=== PATIENT | female | born 1995 | race African-American/Black ===

== ENCOUNTER 2020-08-10 20:58 | Inpatient (IN) | payer OTHER ==
--- NOTE | 2020-08-10 21:56 | PD.OB.PROG ---
Past Medical History - Primary Care Physician Documenting Provider Type: Laborist - Admission Chief Complaint: contractions History Source: Patient Limitations to Obtaining History: No Limitations - Nursing Documentation Nursing Documentation Reviewed: No - Past Medical History CAFETERIA COOK: Denies/None ... Weeks Gestation by Dates: 40.1 ...EDC by Dates: 08/09/20 Heme/Onc: Denies/None Infectious Disease: Denies/None Psych: Denies/None Musculoskeletal: Denies/None - Past Surgical History Past Surgical History: Yes: AV Fistula/Graft Review of Systems - Review of Systems Constitutional: reports: No Symptoms Eyes: reports: No Symptoms HENT: reports: No Symptoms Neck: reports: No Symptoms Cardiovascular: reports: No Symptoms Respiratory: reports: No Symptoms Gastrointestinal: reports: Abdominal Pain Breasts: reports: No Symptoms Reported Musculoskeletal: reports: No Symptoms Integumentary: reports: No Symptoms Neurological: reports: No Symptoms Endocrine: reports: No Symptoms Hematology/Lymphatic: reports: No Symptoms Psychiatric: reports: No Symptoms Physical Exam - Obstetrical Constitutional: Yes: Well Nourished HENT: Yes: WNL Lungs: Normal air movement - Abdominal Exam/OB Fundal Height: 40 Number of Fetuses: Single Presentation: Vertex - Vaginal Exam/OB Vaginal Exam Deferred: Yes Vaginal Bleeding: No Dilatation (cm): 2 Effacement (%): 70 Amniotic Membrane Status: Intact Station: -2 - Physical Exam Musculoskeletal: Yes: Back Pain Integumentary: Yes: WNL ...Motor Strength: WNL Assessment/Plan 24yo at 40.1 weeks with c/o contractions early labor management plan per Dr. Tavera
[2020-08-10 22:22] VITALS: BMI 34.3
[2020-08-10] MEDS: ELECTROLYTE-148 SOLN 1,000 ML IV SCH (23:00)
[2020-08-11 00:58] LABS: BASO % 0.7 % (0-2.0); EOS % 1.4 % (0-4.5); HEMATOCRIT 33.7 % (32.4-45.2); HEMOGLOBIN 11.1 GM/dL (10.7-15.3); LYMPH % 23.6 % (8-40); MCH 30.7 pg (25.7-33.7); MEAN CELL VOLUME 93.1 fl (80-96); MEAN PLT VOLUME 9.7 fl (7.5-11.1); MONO % 9.4 % (3.8-10.2); NEUT % 64.9 % (42.8-82.8); PLATELET COUNT 183 K/MM3 (134-434); RBC 3.62 M/mm3 (3.60-5.2); WHITE BLOOD COUNT 8.5 K/mm3 (4.0-10.0)
[2020-08-11 01:26] LABS: BLOOD UREA NITROGEN 12.5 mg/dL (7-18); CALCIUM 8.5 mg/dL (8.5-10.1); CREATININE 0.4 mg/dL (0.55-1.3); POTASSIUM 4.2 mmol/L (3.5-5.1)
[2020-08-11 01:33] LABS: PLATELET ESTIMATE ADEQUATE
[2020-08-11] MEDS ORDERED: AMPICILLIN SODIUM 2 GM VIAL ONE (02:41)
[2020-08-11] MEDS ORDERED: AMPICILLIN - 2 GM in SODIUM CHLORIDE 100 ML IVPB ONE ×2 (02:43→03:11)
--- NOTE | 2020-08-11 02:52 | HP ---
Past Medical History - Primary Care Physician PCP:: Margo Cardenas - Admission Chief Complaint: Lower abdominal pain History of Present Illness: 24 yo , BARBARA 08/09/20, EGA 40 weeks 2 days, presented with the above. No bleeding or leaking fluid per vagina/ History Source: Patient Limitations to Obtaining History: No Limitations - Past Medical History ...: 4 ...Para: 1 ...Term: 1 ...: 0 ...Spon : 0 ...Induced : 2 ...Living Children: 1 ...Multiple Gestation: 0 ... Weeks Gestation by Dates: 40.1 ...EDC by Dates: 08/09/20 - Past Surgical History Hx Myomectomy: No Hx Transabdominal Cerclage: No - Smoking History Smoking history: Former smoker Have you smoked in the past 12 months: No - Alcohol/Substance Use Hx Alcohol Use: No History of Substance Use: reports: None - Social History Do you think of yourself as: Straight/Heterosexual History of Recent Travel: No Home Medications - Allergies Allergies/Adverse Reactions: Allergies Allergy/AdvReac Type Severity Reaction Status Date / Time No Known Allergies Allergy Verified 08/10/20 22:24 - Home Medications Home Medications: Ambulatory Orders No122/Iron/Folic Acid [ Multi Tablet] 1 each PO AC 08/10/20 Family Medical History Family History: Denies Review of Systems - Review of Systems Constitutional: reports: No Symptoms Eyes: reports: No Symptoms HENT: reports: No Symptoms Neck: reports: No Symptoms Cardiovascular: reports: No Symptoms Respiratory: reports: No Symptoms Gastrointestinal: reports: No Symptoms Genitourinary: reports: No Symptoms Breasts: reports: No Symptoms Reported Musculoskeletal: reports: No Symptoms Integumentary: reports: No Symptoms Neurological: reports: No Symptoms Endocrine: reports: No Symptoms Hematology/Lymphatic: reports: No Symptoms Psychiatric: reports: No Symptoms Physical Exam - Maternity Vital Signs: Vital Signs Temperature 97.8 F 08/11/20 02:00 Pulse Rate 86 08/11/20 02:00 Respiratory Rate 08/11/20 02:00 Blood Pressure 121/56 L 08/11/20 02:00 O2 Sat by Pulse Oximetry (%) Constitutional: Yes: Well Nourished Eyes: Yes: WNL HENT: Yes: WNL Neck: Yes: WNL Cardiovascular: Yes: WNL - Abdominal Exam/OB Fundal Height: 39 Number of Fetuses: Single Presentation: Vertex Contractions: Yes Regularity: Irregular Intensity: Mild Monitor Mode: External Heart Rate (range): 140 Heart Rate Location: [facility] Category: I Accelerations: Uniform Decelerations: None - Vaginal Exam/OB Vaginal Bleeding: No Speculum Exam: No Dilatation (cm): 2 Effacement (%): 80 Amniotic Membrane Status: Intact Presentation: Vertex/Position Station: -3 - Physical Exam Musculoskeletal: Yes: WNL Extremities: Yes: WNL Edema: No Integumentary: Yes: WNL ...Motor Strength: WNL Psychiatric: Yes: WNL - Labs Lab Results: CBC, BMP 08/10/20 22:30 08/10/20 22:30 Hemorrhage Risk Assessment - Risk Factors Medium Risk Factors: Yes: None High Risk Factors: Yes: None Risk Score: 1 Risk Level: Medium Risk Problem List - Problems (1) 40 weeks gestation of Code(s): Z3A.40 - 40 WEEKS GESTATION OF Assessment/Plan Full term gestation in labor Admit L and D for management
--- NOTE | 2020-08-11 03:26 | PN ---
Progress Note (short form) - Note Progress Note: Patient in bed. VSS, afebrile EFM - Baseline 130/min, moderate variability, accelerations, no decelerations Tocos - q7 Pelvic - deferred Plan - Full term gestation in labor Anticipate vaginal delivery. Problem List - Problems (1) 40 weeks gestation of Code(s): Z3A.40 - 40 WEEKS GESTATION OF
[2020-08-11] MEDS ORDERED: AMPICILLIN SODIUM 1 GM VIAL ONE ×2 (06:34→10:37)
[2020-08-11] MEDS: AMPICILLIN - 1 GM in SODIUM CHLORIDE 100 ML IVPB SCH ×3 (06:40→14:56)
[2020-08-11] MEDS ORDERED: OXYTOCIN 30 UNITS in 0.9% NS 30 UNIT/500 ML INFUS.BAG IVPB SCH (08:45)
--- NOTE | 2020-08-11 08:45 | PN ---
Progress Note (short form) - Note Progress Note: patient admitted for induction of labor; seen and evaluated this am; no meds for labor yet exam= 2 cm; 60 % effaced/ - 2 station baseline= 130/ mod variability/ acc / no decelerations/ contractions irregular I/P: for pitocin/ GBS prophylaxis
[2020-08-11] MEDS: ELECTROLYTE-148 SOLN 1,000 ML IV SCH (10:45)
[2020-08-11] MEDS ORDERED: BUTORPHANOL TARTRATE 1 MG/ML VIAL IVPB ONE (11:34)
[2020-08-11] MEDS ORDERED: PROMETHAZINE HCL 25 MG/1 ML VIAL IVPB ONE (11:35)
--- NOTE | 2020-08-11 11:37 | PN ---
Progress Note (short form) - Note Progress Note: patient uncomfortable on Pitocin cervix= 3-4 cm, 70%/- 2 category one tracing I/P: discussed epidural, declines; will give Stadol
[2020-08-11] MEDS ORDERED: BUTORPHANOL TARTRATE 2 MG/ML VIAL ONE (11:41)
[2020-08-11] MEDS ORDERED: PROMETHAZINE HCL 25 MG/1 ML VIAL ONE (11:41)
[2020-08-11] MEDS ORDERED: OXYTOCIN 20 UNITS in 0.9% NS 20 UNIT/1,000 ML INFUS.BAG IV ONE (13:38)
[2020-08-11] MEDS ORDERED: LIDOCAINE HCL 1% PRESERVATIVE FREE - 30ML VIAL ONE (13:38)
[2020-08-11] MEDS ORDERED: OXYTOCIN 10 UNITS/ML VIAL ONE (14:18)
[2020-08-11] MEDS ORDERED: BENZOCAINE 28 GM HEMORRHOIDAL OINTMENT TP PRN (14:41)
[2020-08-11] MEDS ORDERED: BENZOCAINE 20% 57 GM BOTTLE TP PRN (14:41)
[2020-08-11] MEDS ORDERED: WITCH HAZEL 50% (TUCKS) 40 PAD/JAR PAD TP PRN (14:41)
[2020-08-11] MEDS ORDERED: METHYLERGONOVINE MALEATE 0.2 MG/1 ML AMP IM PRN (14:41)
[2020-08-11] MEDS ORDERED: BISACODYL 10 MG SUPP.RECT RC PRN (14:41)
--- NOTE | 2020-08-11 14:41 | PN ---
Delivery - Delivery Vaginal Delivery: No Problems Type of Anesthesia: None Episiotomy/Laceration: None (AROM at 8-9 cm of clear fluid; delivered by , intact perineum = 9-9; placenta spontaneously delivered and complet) EBL (cc): 350 Delivery, Single - Feeding Plan Initial Plan: Elected not to breastfeed exclusively throughout hospitalization
[2020-08-11] MEDS ORDERED: OXYTOCIN 10 UNITS/ML VIAL IM ONE (15:12)
[2020-08-11] MEDS ORDERED: OXYTOCIN 20 UNITS in 0.9% NS 20 UNIT/1,000 ML INFUS.BAG IV SCH (16:15)
[2020-08-11] MEDS: ACETAMINOPHEN 325 MG TABLET (FP) PO PRN (20:33)
[2020-08-11] MEDS: IBUPROFEN 600 MG TABLET (FP) PO PRN (20:33)
[2020-08-12] MEDS: IBUPROFEN 600 MG TABLET (FP) PO PRN ×4 (05:19→21:17)
[2020-08-12] MEDS: ACETAMINOPHEN 325 MG TABLET (FP) PO PRN ×4 (05:19→21:17)
[2020-08-12 07:19] LABS: BASO % 0.7 % (0-2.0); EOS % 1.3 % (0-4.5); HEMATOCRIT 26.8 % (32.4-45.2); HEMOGLOBIN 9.1 GM/dL (10.7-15.3); LYMPH % 25.4 % (8-40); MCH 31.2 pg (25.7-33.7); MCHC 33.9 g/dl (32.0-36.0); MEAN CELL VOLUME 92.1 fl (80-96); MONO % 8.1 % (3.8-10.2); NEUT % 64.5 % (42.8-82.8); PLATELET COUNT 164 K/MM3 (134-434); RBC 2.91 M/mm3 (3.60-5.2); RDW 12.6 % (11.6-15.6); WHITE BLOOD COUNT 9.3 K/mm3 (4.0-10.0)
[2020-08-12] MEDS ORDERED: SENNOSIDES/DOCUSATE COMBO (SENNA PLUS) TABLET (UD) PO PRN (22:00)
--- NOTE | 2020-08-13 09:54 | DS ---
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: Vital Signs Temperature 98.2 F 08/12/20 22:00 Pulse Rate 81 08/12/20 22:00 Respiratory Rate 18 08/12/20 22:00 Blood Pressure 104/60 08/12/20 22:00 O2 Sat by Pulse Oximetry (%) 95 08/11/20 22:04 Constitutional: Yes: Well Nourished, No Distress Neck: Yes: WNL Cardiovascular: Yes: WNL Respiratory: Yes: WNL Gastrointestinal: Yes: WNL, Soft Vaginal Exam: Yes: Normal ....Post : Yes: Uterus firm Breast(s): Yes: WNL Extremities: Yes: WNL Edema: No Labs: CBC, BMP 08/12/20 06:45 08/10/20 22:30 Delivery - Delivery Vaginal Delivery: No Problems Type of Anesthesia: None Episiotomy/Laceration: None EBL (cc): 350 Delivery, Single - Stages of Labor Date 1st Stage Initiatied: 08/11/20 Time 1st Stage Initiated: 11:30 Date 2nd Stage Initiated: 08/11/20 Time 2nd Stage Initiated: 13:45 Date of Delivery: 08/11/20 Time of Delivery: 14:00 Time Placenta Delivered: 14:10 - 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 Present: No Gender: Female Weight: 3.147 kg Position: OA Total Hours ROM (Hrs/Mins): 30min - 1 Minute Total Score: 9 5 Minutes Total Score: 9 - Suring Feeding Plan Initial Plan: Elected not to breastfeed exclusively throughout hospitalization Discharge Summary Problems reviewed: Yes Reason For Visit: LABOR Current Active Problems 40 weeks gestation of (Acute) Procedures: Principal: Hospital Course: uncomplicated Plan of Treatment: regular diet, , pain management, ambulation Condition: Good - Instructions Diet, Activity, Other Instructions: regular diet, pain management, ambulation Referrals: Margo Cardenas MD [Staff Physician] - Disposition: HOME - Home Medications Comprehensive Discharge Medication List: Ambulatory Orders No122/Iron/Folic Acid [ Multi Tablet] 1 each PO AC 08/10/20
[2020-08-13 12:42] VITALS: BP 106/62; PULSE 84; TEMP 98
== END 2020-08-13 11:20 | disposition home or self-care (01) | DRG 560 ==
LOC: JDEL 20:58 → JLDR 21:45 → J3W 08-11 16:03
PROVIDERS: ADMIT Obstetrics & Gynecology; ATTEND Obstetrics & Gynecology
PROC: 10E0XZZ Delivery of Products of Conception, External Approach (ICD-10-PCS; principal; 2020-08-11)
PROC: 10907ZC Drainage of Amniotic Fluid, Therapeutic from Products of Conception, Via Natural or Artificial Opening (ICD-10-PCS; 2020-08-11)
DX: O48.0 Post-term pregnancy (principal); Z3A.40 40 weeks gestation of pregnancy; Z37.0 Single live birth
CPT/HCPCS: 36415; 59025; 59409; 80048; 85025; 85730; 86780; 86850; 86900; 86901; 87389